=== PATIENT | male | born 1965 | race Caucasian/White ===

== ENCOUNTER 2016-12-21 20:51 | Inpatient (IN) | payer OTHER ==
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
--- NOTE | ~2016-12-21 | PN ---
Unit #: [id number] #: [id number] Patient: NATANAEL VILLA [id number] [facility] [address] [place] [address] [id number] I MR#: [id number] NAME: NATANAEL VILLA. ROOM: [facility] Age: 51 Sex: M Admission Date: 12/21/2016 : 1965 Attending Physician: Myrna Pearce M.D. Admitting Physician: Myrna Pearce M.D. Primary Care Physician: Primary Care Physician Mame LEE NOTES DATE December 23, 2016 DISCUSSION Mr. Villa is a 51-year-old white male, who was seen today and chart was reviewed and the case was discussed with the staff. He has been anxious, withdrawn, and rather seclusive to himself. Meanwhile, he has been cooperative with the treatment recommendations and he has been taking the medications and tolerating them fairly well with no reported side effects. MENTAL STATUS EXAMINATION Middle-aged white male, who was casually dressed with fair personal hygiene and appears to be in no acute distress or discomfort. He was awake and alert on interaction with intact orientation. His mood is anxious with a congruent affect. He denies any suicidal or homicidal ideations. His insight and judgment remain slightly impaired. TREATMENT PLAN 1. We will continue him on his current medications and treatment protocol, and will monitor his response to the medications, and make further adjustments as needed. 2. We will continue to followup. Dictated by... Mehran Stout/janessa TD: 12/23/2016 09:35 JOB #: [id number] Unit #: [id number] #: [id number] Patient: NATANAEL VILLA KONSTANTIN LEE NOTES Page 1 of 1 X Myrna Pearce MD PROGRESS NOTE
--- NOTE | ~2016-12-21 | DS ---
Unit #: [id number] #: [id number] Patient: NATANAEL VILLA [id number] [facility] [address] [place] [address] [id number] MR#: [id number] NAME: NATANAEL VILLA. ROOM: [facility] Age: 51 Sex: M Admission Date: 12/21/2016 : 1965 Discharge Date: 12/24/2016 Attending Physician: Myrna Pearce M.D. Primary Care Physician: Primary Care Physician No DISCHARGE SUMMARY IDENTIFYING DATA Mr. Villa is a 51-year-old white male, who is well known to us from previous encounters, self-referred to the program. DISCHARGE DIAGNOSES [place] I Major depressive disorder, recurrent, moderate, without psychotic features. [place] II [place] III chronic obstructive pulmonary disease. Obesity. [place] IV Moderate psychosocial stressors. [place] V HISTORY OF PRESENT ILLNESS Please see psychiatric evaluation for details. PAST PSYCHIATRIC HISTORY Please see psychiatric evaluation for details. PAST MEDICAL HISTORY Please see psychiatric evaluation for details. HOSPITAL COURSE The patient [facility] and was referred to the hospital environment team, p.r.n. medications were initiated and he was started back on his home medications and antidepressant medications were initiated and he was closely monitored. He was taking medications fairly well and he was tolerating and he was showing good response and then informed us that his sister is wanting him to come to [place] and that she is going to send a ticket and social insurance adviser were able to verify that. However, he will be [place] the bus station and he will go to [place] and follow up with local [facility] there. CONDITION AT DISCHARGE Stable. PROGNOSIS Fair. Unit #: [id number] #: [id number] Patient: NATANAEL VILLA Dictated by... Mehran Stout/janessa TD: 12/25/2016 05:56 JOB #: [id number] DISCHARGE SUMMARY Page 1 of 1 X Myrna Pearce MD DISCHARGE SUMMARY
--- NOTE | ~2016-12-21 | HP ---
Unit #: [id number] #: [id number] Patient: MIKE HUTCHINSON [id number] [place] [address] [id number] MR#: [id number] NAME: MIKE HUTCHINSON. ROOM: [facility] Age: 51 Sex: M Admission Date: 12/21/2016 : 1965 Attending Physician: Myrna Pearce M.D. Admitting Physician: Myrna Pearce M.D. Primary Care Physician: Primary Care Physician No HISTORY AND PHYSICAL HISTORY OF PRESENT ILLNESS Mike is a 51-year-old admitted to [facility] with depression verbalizing wanting to hurt himself. PAST MEDICAL HISTORY 1. High blood pressure. 2. Obesity. 3. History of TBI. 4. History of PUD. PAST SURGICAL HISTORY Right rotator cuff repair. ALLERGIES No known drug allergies. SOCIAL HISTORY Smokes 1 pack per day. Denies alcohol and illicit drug use. FAMILY HISTORY Medically noncontributory. REVIEW OF SYSTEMS CONSTITUTIONAL: No fever or chills. HEENT: Denies any sore throat, ear pain or runny nose. CARDIOVASCULAR: Denies chest pain, irregular heart rhythm or palpitations. CHEST: Denies shortness of breath or cough. No hemoptysis. GASTROINTESTINAL: Denies nausea, vomiting, diarrhea or chronic constipation. ENDOCRINE: Denies history of increased thirst or urination. No recent significant weight loss or gain. GENITOURINARY: Denies dysuria, frequency, or hematuria. SKIN: Denies any rashes. HEMATOLOGIC: Denies history of increased bleeding or bruising. MUSCULOSKELETAL: Denies any hot, swollen joints. No generalized muscle pain. NEUROLOGIC: Denies problems with vision or speech. No frequent, severe headaches. No numbness, tingling or weakness in any extremities. Denies loss of bladder or bowel control. CURRENT MEDICATIONS 1. Effexor XR 75 mg q.h.s. 2. BuSpar 10 mg b.i.d. Unit #: [id number] #: [id number] Patient: MIKE HUTCHINSON 3. Milk of Magnesia p.r.n. 4. Maalox p.r.n. 5. Tylenol p.r.n. 6. Desyrel 100 mg q.h.s. 7. Protonix 40 mg b.i.d. 8. Carafate 1 gram before each meal. 9. Zestril 20 mg daily. 10. Nicotine patch 21 mg daily. PHYSICAL EXAMINATION GENERAL: Alert, obese, in no apparent distress. VITAL SIGNS: Blood pressure 156/102, heart rate 80, respirations 16, temperature 98.6. WEIGHT: 225. HEIGHT: 5 feet 11 inches. SKIN: Warm and dry without rash or lesion. HEENT: Normocephalic. TMs not viewed. Oral and nasal passages clear. Conjunctivae clear. PERRLA. EOMs intact. NECK: Supple without lymphadenopathy or thyromegaly. HEART: Regular rate and rhythm without murmur. LUNGS: Clear. ABDOMEN: Soft, nontender. : Not done. EXTREMITIES: No evidence of cyanosis, clubbing or edema. Moves all without focal deficit. NEUROLOGICAL: Grossly within normal limits. Cranial Nerves: II: Visual tucker are intact. III, IV AND : Extraocular movements are intact. Pupils are equal, round and reactive to light. V: Facial sensation is grossly normal. VII: Facial movements and expression are normal. VIII: Auditory acuity grossly intact. IX, X: Uvula is midline. Phonation is normal. XI: Patient shrugs shoulders and turns head normally. XII: Tongue protrudes in the midline. Sensory and Motor Function: Sensory and motor sensation is grossly normal. Motor: moves all extremities well. Coordination: Gait is normal. Deep Tendon Reflexes: Intact. IMPRESSION Psychiatric admission. RECOMMENDATIONS PSYCHIATRIC: Per psychiatrist. MEDICAL: See no contraindications to participate in facility's activities. MEDICAL PROGNOSIS Good. MEDICAL CONDITION Stable. Dictated by... Veronika Brunner P.A.-C. for Alisa Cuevas M.D. Unit #: [id number] #: [id number] Patient: MIKE HUTCHINSON NORAH/jin TD: 12/22/2016 18:29 JOB #: [id number] HISTORY AND PHYSICAL Page 1 of 1 X Veronika Brunner HISTORY AND PHYSICAL
[~2016-12-21 20:51] MED LIST: CARAFATE PO; CATAPRES-TTS-20.2 MG PO; CATAPRES-TTS-30.3 M1 PO; CATAPRES0.3 MG PO; CLONIDINE 0.2 MG PO; CLONIDINE PO; COLCHICINE0.6 M1 PO; HYDROCODON-ACE1 EAC9 PO; INDOCIN SR75 MG PO; LEVAQUIN PO; LISINOPRIL PO; LISINOPRIL20 MG PO; NORVASC PO; NORVASC10 MG PO; PROTONIX PO; ULCER MED; ZYLOPRIM PO; ZYLOPRIM100 MG PO
== END 2016-12-24 10:00 | disposition home or self-care (01) | DRG 885 ==
LOC: P2L 20:51
DX: F33.1 Major depressive disorder, recurrent, moderate (principal); F29 Unspecified psychosis not due to a substance or known physiological condition; I10 Essential (primary) hypertension; F41.1 Generalized anxiety disorder; Z87.820 Personal history of traumatic brain injury; E66.9 Obesity, unspecified; Z87.11 Personal history of peptic ulcer disease; F17.210 Nicotine dependence, cigarettes, uncomplicated; J44.9 Chronic obstructive pulmonary disease, unspecified